=== PATIENT | female | born 1965 | race Caucasian/White ===

== ENCOUNTER 2017-02-22 21:28 | Emergency (ER) | payer BC ==
[~2017-02-22] VITALS: Ht 154.9 cm; Wt 79.3 kg
[~2017-02-22 21:28] MED LIST: AMOX1TAB12 PO; BP med; ESTR0.5T3 PO; SERT25TA69 PO; TRAM-25 PO
--- OUTSIDE RECORDS SUMMARY | 2017-02-22 21:33 | XMS REPORT | Continuity of Care Document ---
Author Author [facility] Address Unknown Phone Unavailable Allergies Active Description Code Type Severity Reaction Onset Reported/Identified Relationship to Patient Clinical Status Yes acetaminophen [id number] Drug Allergy Mild ITCHING 03/01/2016 Yes hydrocodone [id number] Drug Allergy Mild ITCHING 03/01/2016 Yes Lortab 7006 Drug mild to moderate Itching 06/12/2016 Medications Problems Date Dx Coded Attending Type Code Diagnosis Diagnosed By 03/26/2015 Ot 793.89 04/16/2015 MARIA GUADALUPE MTZ, RONALD Perkins Ot 784.2 04/20/2015 MARIA GUADALUPE MTZ, RONALD Perkins Ot 784.2 04/20/2015 MARIA GUADALUPE MTZ, RONALD Perkins Ot 793.7 05/06/2015 MARIA GUADALUPE MTZ, RONALD Perkins Ot 784.2 05/06/2015 MARIA GUADALUPE MTZ, RONALD Perkins Ot 793.7 03/01/2016 Ot 793.89 OTH (ABN) FINDINGS ON RADIOLOGICAL EXAMI 03/01/2016 MARIA GUADALUPE MTZ, RONALD Perkins Ot 784.2 SWELLING IN HEAD NECK 03/01/2016 MARIA GUADALUPE MTZ, RONALD Perkins Ot 784.2 SWELLING IN HEAD NECK 03/01/2016 MARIA GUADALUPE MTZ, RONALD Perkins Ot 793.7 NOSP (ABN) FINDINGS ON RADIOLOGICAL OT 03/02/2016 BAM THOMPSON MD Ot L03.116 CELLULITIS OF LEFT LOWER LIMB 03/09/2016 BAM THOMPSON MD Ot L03.116 CELLULITIS OF LEFT LOWER LIMB 03/09/2016 BAM THOMPSON MD Ot L03.116 CELLULITIS OF LEFT LOWER LIMB 06/14/2016 Delroy Trent N39.3 Stress Incontinence (Female) (Male) Procedures Results Encounters ACCT No. Visit Date/Time Discharge Status Pt. Type Provider Facility Loc./Unit Complaint [id number] 03/01/2016 23:24:00 2015 00:24:00 DIS Emergency DONNA MD, [facility] ED [id number] 04/14/2015 14:30:00 2014 23:59:59 CLS Outpatient MARIA GUADALUPE MTZ, [facility] RAD [id number] 03/26/2015 13:53:00 2014 23:59:59 CLS Outpatient MARIA GUADALUPE MTZ, [facility] [id number] 11/18/2012 13:02:00 Document Registration
--- OUTSIDE RECORDS SUMMARY | 2017-02-22 21:33 | XMS REPORT | Continuity of Care Document ---
Author Author [facility] Address Unknown Phone Unavailable Allergies Active Description Code Type Severity Reaction Onset Reported/Identified Relationship to Patient Clinical Status Yes acetaminophen [id number] Drug Allergy Mild ITCHING 03/01/2016 Yes hydrocodone [id number] Drug Allergy Mild ITCHING 03/01/2016 Yes Lortab [...] Status Pt. Type Provider Facility Loc./Unit Complaint [id number] 03/01/2016 23:24:00 2015 00:24:00 DIS Emergency DONNA MD, [facility] ED [id number] 04/14/2015 14:30:00 2014 23:59:59 CLS Outpatient MARIA GUADALUPE MTZ, [facility] RAD [id number] 03/26/2015 13:53:00 2014 23:59:59 CLS Outpatient MARIA GUADALUPE MTZ, [facility] [id number] 11/18/2012 13:02:00 Document Registration
[2017-02-22] MEDS ORDERED: diphenhydrAMINE 50 MG (BENADRYL) CAPSULE PO ONE (22:05)
[2017-02-22] MEDS ORDERED: predniSONE 20 MG (DELTASONE) TABLET PO ONE (22:05)
[2017-02-22] MEDS ORDERED: PRED10TA PO (22:07)
[2017-02-22 22:33] VITALS: BP 149/80
== END 2017-02-22 22:34 | disposition home or self-care (01) ==
LOC: ED 21:29
DX: S00.86XA Insect bite (nonvenomous) of other part of head, initial encounter (principal); S10.86XA Insect bite of other specified part of neck, initial encounter; L50.0 Allergic urticaria; W57.XXXA Bitten or stung by nonvenomous insect and other nonvenomous arthropods, initial encounter
CPT/HCPCS: 99282; 99283